=== PATIENT | female | born 2000 | race Caucasian/White ===

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

== ENCOUNTER → 2020-07-13 16:00 | Outpatient (CLI) | payer BC, SELFPAY ==
[2017-06-15 21:56] VITALS: BMI 20.2
[2020-07-13 17:52] LABS: Erythrocyte Sedimentation Rate 2 mm/hr (0-30)
[2020-07-13 18:15] LABS: Rheumatoid Factor < 10.0 IU/mL (<15)
[2020-07-15 15:55] LABS: ANTINUCLEAR ANTIBODIES DIRECT Negative (Negative)
[2020-07-20 12:08] LABS: Cytoplasmic Ab (C-ANCA) <1:20 titer (Neg:<1:20); QNTFERON TB Mitogen Value > 10.00 IU/mL (.); QNTFERON TB Nil Value 0.01 IU/mL (.); QNTFERON TB1+ Ag Value 0.06 IU/mL (.); QNTFERON TB2+ Ag Value 0.05 IU/mL (.)
[2020-07-20 17:09] LABS: HLA B27 Negative (.); Perinuclear Ab (P-ANCA) <1:20 titer (Neg:<1:20); QNTIFERON TB Positive Criteria Negative (Negative)
== END ==
DX: H20.9 Unspecified iridocyclitis (principal)
CPT/HCPCS: 36415; 81374; 85652; 86038; 86256; 86431; 86480

== ENCOUNTER 2020-08-08 23:27 | Emergency (ER) | payer BC, SELFPAY ==
[2020-08-08 23:27] VITALS: BP 151/88; PULSE 97; RESP 16; TEMP 35.5; O2SAT 96; BMI 21.2
--- NOTE | 2020-08-08 23:56 | EKG12_ITS ---
Test Reason : HEADACHE Blood Pressure : / mmHG Vent. Rate : 084 BPM Atrial Rate : 084 BPM P-R Int : 138 ms QRS Dur : 078 ms QT Int : 340 ms P-R-T Axes : 054 091 015 degrees QTc Int : 401 ms Normal sinus rhythm Rightward axis Nonspecific ST abnormality Abnormal ECG Confirmed by ARTHUR EATON, DORA ([id number]), television news video editor RIAZ BARILLAS ([id number]) on 08/09/2020 10:52:12 AM Referred By: MIRA Confirmed By:DORA GIBSON MD
--- NOTE | 2020-08-08 23:59 | ED.DCSUM_ITS ---
History of Present Illness Chief Complaint: Headache Informant: Patient Onset: Yesterday Context: Gradual Onset Timing: Waxes and wanes Current Severity: Mild Maximum Severity: Moderate Narrative: Patient present secondary to headache and palpitations. Approximately 6 weeks ago but she began noticing floaters in her left eye. She was seen by an ceo & board director approximate 1 month ago who diagnosed her with optic neuritis. She had an MRI of her orbits and is scheduled for an MRI of her brain this week. Patient states they believe she has an autoimmune disorder. She was seen in urgent care earlier today for thrush in her mouth. She is also on antibiotics for BV. Patient states last evening she began having palpitations and generalized headache which she described as a brain freeze. Symptoms improved after approximately 30 minutes but never completely subsided. She is continue to have waxing and waning headaches today. She does have light sensitivity. No nausea or vomiting. No recent head trauma. - Past Medical History (1) Anxiety Status: Chronic Past Medical History - Allergies and Home Meds Allergies/Adverse Reactions: Allergies naproxen Allergy (Verified 08/08/20 23:32) Itching cefdinir [From Omnicef] Adverse Reaction (Verified 08/08/20 23:32) Itching nitrofurantoin [From Macrobid] Adverse Reaction (Verified 08/08/20 23:32) Itching oseltamivir [From Tamiflu] Adverse Reaction (Verified 08/08/20 23:32) Itching pineapple Adverse Reaction (Verified 08/08/20 23:32) Anaphylaxis Sulfa (Sulfonamide Antibiotics) Adverse Reaction (Verified 08/08/20 23:32) Itching Primary Care Physician: Care Physician,No Primary [Primary Care Provider] - Prior records reviewed: Yes Lives: With Family Smoking Status: Never smoker Review of Systems General: Denies: Chills, Fever Eyes: Reports: - - Floaters and decreased color sensation left eye ENT: Denies: Bilateral ear pain, Sore throat Cardiovascular: Reports: Palpitations. Denies: Chest pain Respiratory: Denies: Dyspnea, Cough Gastrointestinal: Denies: Abdominal pain, Nausea, Vomiting, Diarrhea Genitourinary: Denies: Dysuria Musculoskeletal: Denies: Swelling, Extremity Pain Skin: Denies: Rash Neurological: Reports: Headache. Denies: Weakness, Parasthesia Hematologic: Denies: Easy bruising, Easy bleeding Allergy: Denies: Uticaria Physical Exam Vital Signs/Narrative: Vital Signs Temp Pulse Resp BP Pulse Ox 08/08/20 23:27 96 F L 97 16 151/88 H 96 Inital Vital Signs reviewed: Yes General: Well nourished, Well developed Head: Normocephalic ENT: Moist mucous membranes Neck: Supple Cardiovascular: Regular rate, Regular rhythm Respiratory: No distress, CTA bilaterally Abdomen: Soft, Nontender Back: Nontender Extremities: Nontender Skin: Normal color, No rash Neurological: Alert, Oriented x3, Normal Strength, Normal Sensation Psychological: Normal affect Diagnostic/Tx/Re-eval Chest X-Ray - ED: 1 View, Read by ED Physician, Normal, Heart, Lungs, Mediastinum Impressions Chest X-Ray 08/09/20 00:00 IMPRESSION: Normal x-ray examination of the chest. Electronically Signed: Omar Whitehead DO at 0:46 EST Tel , Service support , Brain CT 08/09/20 23:57 IMPRESSION: Normal unenhanced CT scan of the brain. Electronically Signed: Omar Whitehead DO at 0:48 EST Tel , Service support , 08/09/20 00:00 Chest 1 View (Portable) [RAD] Stat 08/09/20 23:57 Brain/Head without Contrast [CT] Stat Laboratory Results 08/09/20 08/09/20 00:10 00:10 WBC 8.1 RBC 5.01 Hgb 13.7 Hct 43.4 MCV 86.6 MCH 27.3 MCHC 31.6 L RDW Std Deviation 40.0 RDW Coeff of Nika 12.5 Plt Count 350 MPV 10.2 Immature Gran % (Auto) 0.200 Neut % (Auto) 56.5 Lymph % (Auto) 36.6 [place] % (Auto) 5.4 Eos % (Auto) 0.7 Baso % (Auto) 0.6 Absolute Neuts (auto) 4.6 Absolute Lymphs (auto) 2.96 Nucleated RBC % 0 Sodium 141 Potassium 3.6 Chloride 107 Carbon Dioxide 23.0 Anion Gap 11 BUN 11 Creatinine 0.78 Estim Creat Clear Calc 90.99 Est GFR (MDRD) Af Amer 120 Est GFR (MDRD) Non-Af 99 BUN/Creatinine Ratio 14.0 Glucose 85 Calcium 9.7 TSH 2.06 - EKG Initial EKG Interpretation: Sinus Rhythm - Sinus 84 with no acute ischemia. - Medical Decision Making Patient was given Toradol, Reglan, Benadryl, and IV fluids. Chest x-ray and head CT are unremarkable. Blood work including electrolytes and TSH are normal. On repeat evaluation patient states her headache is significantly improved. She has not had palpitations while here in the emergency room and no arrhythmias have been noted on media monitor. Patient will follow up with her doctors later this week for further testing as already planned. ED Disposition - Plan for ED Patient: Disposition: Home or Assisted Living Diagnosis: Cephalgia, Palpitations Instructions: ED Palpitations, ED Headache Unspecified Additional Instructions: Follow-up with your specialists as planned.
--- NOTE | 2020-08-09 | RAD_ITS ---
STUDY: X-RAY CHEST REASON FOR EXAM: Female, 20 years old. palpitations TECHNIQUE: Single AP portable view of the chest. COMPARISON: None. FINDINGS: The lungs are clear and expanded. There is no demonstrated pleural abnormality. Normal size heart. Normal mediastinum and prashanth. Normal visualized pulmonary arteries. Normal visualized aortic arch and descending thoracic aorta. Normal visualized thoracic spine. Normal visualized ribs, clavicles, and shoulders. There is no demonstrated abnormality of the visualized soft tissue structures of the upper abdomen. RAD/Chest 1 View (Portable) IMPRESSION: Normal x-ray examination of the chest. Electronically Signed: Omar Whitehead DO at 0:46 EST Tel , Service support ,
[2020-08-09] MEDS: 0.9% Normal Saline 1,000 ML 1000 ML IV (00:07)
[2020-08-09] MEDS: DiphenhydrAMINE 50 MG/ML Syringe 25 MG IV (00:08)
[2020-08-09] MEDS: Metoclopramide 10 MG/2 ML Vial 5 MG IV (00:08)
[2020-08-09] MEDS: Ketorolac 15 MG/ML Vial IV (00:08)
[2020-08-09 00:15] LABS: Absolute Lymphocyte Count 2.96 X10^3/uL (0.83-4.51); Absolute Neutrophil Count 4.6 X10^3/uL (2.0-7.7); Basophil# 0.05 X10^3/uL; Basophil% 0.6 % (0-1); Eosinophil# 0.06 X10^3/uL; Eosinophils% 0.7 % (0-5); Hematocrit 43.4 % (37-47); Hemoglobin 13.7 g/dL (12.0-15.0); Lymphocyte # 2.96 X10^3/ul (4.0); Lymphocyte % 36.6 % (19-41); Mean Corp Hgb Conc 31.6 g/dL (32-36); Mean Corpuscular Hgb 27.3 pg (27.0-32.0); Mean Corpuscular Volume 86.6 fL (81-99); Mean Platelet Vol. 10.2 fl (6.2-12.0); Monocyte# 0.44 X10^3/uL; Monocyte% 5.4 % (0-10); NRBC Flagged by Analyzer 0 % (0-5); Neutrophil # 4.55 X10^3/uL (2.7-7.7); Neutrophil % 56.5 % (47-70); Platelet Count 350 K/mm3 (150-450); RBC Distribution Width CV 12.5 % (11.6-14.6); Red Blood Count 5.01 M/mm3 (4.2-5.4); White Blood Count 8.1 K/mm3 (4.4-11.0)
[2020-08-09 00:40] LABS: Anion Gap 11 (5-15); BUN 11 mg/dL (7-18); Calcium,Total 9.7 mg/dL (8.5-10.1); Chloride 107 mmol/L (98-107); Creatinine, Serum 0.78 mg/dL (0.55-1.02); EST Glomerular Filtration Rate 99 mL/min (>60); Est Glom Filt Rate - Afr Amer 120 mL/min (>60); Estimated Creatinine Clearance 90.99 ml/min; Glucose 85 mg/dL (74-106); Potassium 3.6 mmol/L (3.5-5.1); Sodium Level 141 mmol/L (136-145); Thyroid Stim Hormone (TSH) 2.06 uIU/mL (0.358-3.74)
[2020-08-09 01:18] VITALS: PULSE 90; RESP 17; O2SAT 98
--- NOTE | 2020-08-09 23:57 | CT_ITS ---
STUDY: CT BRAIN WITHOUT CONTRAST REASON FOR EXAM: Female, 20 years old. headache RADIATION DOSAGE (If Supplied By Facility): CTDIvol = ( 44.99 ) mGy, DLP = ( 762.36 ) mGycm TECHNIQUE: Transaxial CT imaging of the brain was performed without administration of intravenous contrast material. Individualized dose optimization techniques were used for this CT. COMPARISON: No relevant priors. FINDINGS: Normal soft tissue structures. Normal calvarium. Normal size ventricles and extra-axial spaces for the patient''s age. Normal white matter tracts of the cerebral hemispheres. Normal basal ganglia and thalami. Normal brainstem. Normal cerebellum. There is no intracranial hemorrhage. There are no findings of an acute ischemic infarction. Normal visualized paranasal sinuses. CT/Brain/Head without Contrast IMPRESSION: Normal unenhanced CT scan of the brain. Electronically Signed: Omar Whitehead DO at 0:48 EST Tel , Service support ,
== END 2020-08-09 01:21 | disposition home or self-care (01) ==
PROVIDERS: Emergency Provider Emergency Medicine
DX: R51.9 Headache, unspecified (principal); R00.2 Palpitations
CPT/HCPCS: 70450; 71045; 80048; 84443; 85025; 93005; 96361; 96374; 96375; 99283; J7030; A4216

== ENCOUNTER 2021-11-15 18:30 | Emergency (ER) | payer BC, SELFPAY ==
[2021-11-15 18:32] VITALS: BP 134/73; PULSE 103; RESP 16; TEMP 36.8; O2SAT 100; BMI 22.0
--- NOTE | 2021-11-15 18:49 | EKG12_ITS ---
Test Reason : DIZZINESS Blood Pressure : / mmHG Vent. Rate : 090 BPM Atrial Rate : 090 BPM P-R Int : 138 ms QRS Dur : 084 ms QT Int : 352 ms P-R-T Axes : 066 088 021 degrees QTc Int : 430 ms Normal sinus rhythm Nonspecific ST abnormality Abnormal ECG Confirmed by NATALEE EATON, RITIKA ([id number]), research editor RIAZ BARILLAS ([id number]) on 11/20/2021 7:37:30 AM Referred By: MIGUELANGEL Confirmed By:RITIKA ALBRIGHT MD
--- NOTE | 2021-11-15 18:50 | EX.ED.DYSGE1 ---
HPI History of Present Illness Chief Complaint: Dizziness Narrative Narrative: Patient presents with near syncope symptoms that she has had all day. She has past medical history of MS and takes gabapentin for nerve pain. She was recently placed on Cymbalta for her nerve pain instead of upping the nighttime dose of her gabapentin, and took her first dose this morning. She states she was at work and she did not feel well. Her coworkers told her that her cheeks were flushed and red, and that her pupils were dilated. She stated to them that she did not feel well because she did feel flushed and then will get chills. She felt lightheaded as if she was going to pass out. She denies any chest pain or shortness of breath. No other symptoms. She sat down and still did not feel well and became more chilled versus flushed. She describes more near syncopal symptoms. No fever. No problems with dysuria. She does not have menstrual periods because she is on Depo-Provera. [facility] Medical History (Updated 11/15/21 @ 20:28 by Db Starr MD) Celiac disease Neuropathy Optic neuritis Home Medications medroxyprogesterone 1 applic IM QMONTH 06/15/17 [History Last Taken Unknown] Allergy/AdvReac Type Severity Reaction Status Date / Time naproxen Allergy Itching Verified 11/15/21 18:31 cefdinir [From Omnicef] AdvReac Itching Verified 11/15/21 18:31 nitrofurantoin AdvReac Itching Verified 11/15/21 18:31 [From Macrobid] oseltamivir [From Tamiflu] AdvReac Itching Verified 11/15/21 18:31 pineapple AdvReac Anaphylaxis Verified 11/15/21 18:31 Sulfa (Sulfonamide AdvReac Itching Verified 11/15/21 18:31 Antibiotics) Social History Smoking Status: Never smoker ROS ROS ED ROS Narrative Constitutional: No fever, feels flushed, positive alternating chills. HEENT: No sore throat. No neck pain. No loss of vision. No rhinorrhea. Cardiovascular: No chest pain. No palpitations. No pedal edema. Respiratory: No cough, no shortness of breath. Abdominal: No abdominal pain. Mild nausea. No vomiting. Genitourinary: No dysuria. No hematuria. Musculoskeletal: No myalgias. No arthralgias. Neurologic: No headaches. No dizziness. Positive near syncope and lightheadedness. Skin: No rash. No change in color, except for reported flushed cheeks earlier today. Psychiatric: No depression. No anxiety. EXAM Physical Exam Narrative Exam Narrative: Afebrile. Vital signs noted. HEENT: Normocephalic. Atraumatic. PERRL, EOMI. Neck soft and supple. No point tenderness or step off. Cardiovascular: Regular rate and rhythm with intermittent tachycardia at 103. No murmurs, rubs, or gallops appreciated. Respiratory: No tachypnea. Lungs clear to auscultation bilaterally. Gastrointestinal: Abdomen soft, nontender, with normoactive bowel sounds. No rebound or guarding. Neurological: Awake. Alert. Nonfocal, nonlateralizing. Skin: No rash. Normal color. No pallor. Musculoskeletal: No pedal edema. Full range of motion extremities. Const Vital Signs: 11/15/21 18:32 11/15/21 19:05 Temperature 98.2 F Temperature Source Temporal Pulse Rate 103 H Pulse Rate [Lying] 86 Pulse Rate [Sitting (for 1 minute prior to obtaining)] 83 Pulse Rate [Standing (for 1 minute prior to obtaining)] 90 Respiratory Rate 16 Blood Pressure 134/73 H Blood Pressure [Lying] 127/75 H Blood Pressure [Sitting (for 1 minute prior to obtaining)] 125/74 H Blood Pressure [Standing (for 1 minute prior to obtaining)] 133/78 H Blood Pressure Mean 93 Blood Pressure Mean [Lying] 92 Blood Pressure Mean [Sitting (for 1 minute prior to obtaining)] 91 Blood Pressure Mean [Standing (for 1 minute prior to obtaining)] 96 Pulse Ox 100 Oxygen Delivery Method Room Air MDM MDM MDM Narrative Medical decision making narrative: Patient and her mother state that [facility] were [facility]. They were sent for laboratory work. I do feel that she most likely has vasovagal near syncope/medication side effect. She will be bolused normal saline 1 L intravenously. I will obtain an EKG and basic laboratory work including urinalysis. However, given that she does not have menses secondary to her Depo-Provera, I do not feel that beta-hCG is indicated. EKG demonstrates normal sinus rhythm at 90 bpm without ectopy or acute ST changes. Orthostatics are negative. CBC is grossly normal with a normal white count of 6.3, hemoglobin normal at 12.7, hematocrit 39.7. Platelet count normal at 305. Chloride slightly elevated at 111 but normal sodium and normal potassium. Anion gap normal at 5. BUN and creatinine are normal at 10 and 0.76 respectively. No signs of dehydration. Urinalysis is negative for ketones or infection. After IV fluids, she has markedly improved according to her mother and she feels improved as well. She would like to be discharged. I do feel that she has more of a medication side effect than a true allergy. She states she will not take the Cymbalta and will follow-up with her primary care physician. I feel she can be discharged safely home with follow-up. Return instructions were reviewed. Disposition is discharged home in stable condition. Lab Data Attestation: I reviewed the patient's lab results. Labs: Laboratory Results - last 24 hr 11/15/21 11/15/21 11/15/21 19:00 19:00 19:22 WBC 6.3 RBC 4.62 Hgb 12.7 Hct 39.7 MCV 85.9 MCH 27.5 MCHC 32.0 RDW Std Deviation 42.4 RDW Coeff of Nika 13.6 Plt Count 305 MPV 10.6 Immature Gran % (Auto) 0.200 Neut % (Auto) 59.6 Lymph % (Auto) 29.7 [place] % (Auto) 8.6 Eos % (Auto) 1.1 Baso % (Auto) 0.8 Absolute Neuts (auto) 3.7 Absolute Lymphs (auto) 1.86 Nucleated RBC % 0 Sodium 141 Potassium 4.5 Chloride 111 H Carbon Dioxide 25.0 Anion Gap 5 BUN 10 Creatinine 0.76 Estim Creat Clear Calc 92.61 Est GFR (MDRD) Af Amer 123 Est GFR (MDRD) Non-Af 102 BUN/Creatinine Ratio 13.2 Glucose 107 H Calcium 9.2 Total Bilirubin 0.40 AST 9 L ALT 14 Alkaline Phosphatase 72 Total Protein 7.2 Albumin 4.2 Globulin 3.0 Albumin/Globulin Ratio 1.4 Urine Color Straw Urine Clarity Clear Urine pH 6.0 Ur Specific [place] 1.010 Urine Protein Negative Urine Glucose (UA) Normal Urine Ketones Negative Urine Occult Blood Negative Urine Nitrite Negative Urine Bilirubin Negative Urine Urobilinogen Normal Ur Leukocyte Esterase Negative Urine RBC 0 SEEN Urine WBC 0 SEEN Ur Squamous Epith Cells 0-5 SEEN Urine Bacteria RARE Urine Mucus 0 SEEN Discharge Plan Triage Chief Complaint: Dizziness ED Provider: Db Starr Dx/Rx/DC Orders Clinical Impression: Medication intolerance, Vasovagal near-syncope Instructions: ED Near-Fainting, Uncertain Cause Prescriptions: No Action medroxyprogesterone 150 MG/ML syringe 1 applic IM QMONTH RF: 0 Referrals: JULIANNA HOUSER [Other] Activity Restrictions/Additional Instructions: Avoid taking Cymbalta because of your intolerance to it. Follow-up with your primary care physician as soon as possible. Call tomorrow. Disposition Disposition: Home, Self Care
[2021-11-15 19:05] VITALS: BP 125/74; BP 127/75; BP 133/78; PULSE 83; PULSE 86; PULSE 90
[2021-11-15 19:12] LABS: Absolute Lymphocyte Count 1.86 X10^3/uL (0.83-4.51); Absolute Neutrophil Count 3.7 X10^3/uL (2.0-7.7); Basophil# 0.05 X10^3/uL; Basophil% 0.8 % (0-1); Eosinophil# 0.07 X10^3/uL; Eosinophils% 1.1 % (0-5); Hematocrit 39.7 % (37-47); Hemoglobin 12.7 g/dL (12.0-15.0); Lymphocyte # 1.86 X10^3/ul (0.83-4.51); Lymphocyte % 29.7 % (19-41); Mean Corpuscular Hgb 27.5 pg (27.0-32.0); Mean Corpuscular Volume 85.9 fL (81-99); Mean Platelet Vol. 10.6 fl (6.2-12.0); Monocyte# 0.54 X10^3/uL; Monocyte% 8.6 % (0-10); NRBC Flagged by Analyzer 0 % (0-5); Neutrophil # 3.74 X10^3/uL (2.7-7.7); Neutrophil % 59.6 % (47-70); Platelet Count 305 K/mm3 (150-450); RBC Distribution Width CV 13.6 % (11.6-14.6); RBC Distribution Width SD 42.4 fl (35.1-43.9); Red Blood Count 4.62 M/mm3 (4.2-5.4); White Blood Count 6.3 K/mm3 (4.4-11.0)
[2021-11-15] MEDS: 0.9% Normal Saline 1,000 ML 1000 ML IV (19:28)
[2021-11-15 19:41] LABS: ALB/GLOB Ratio 1.4 RATIO (0.9-2.4); AST(SGOT) 9 U/L (15-37); Alanine Aminotransfer ALT/SGPT 14 U/L (13-56); Albumin, Serum 4.2 g/dL (3.2-5.0); Alkaline Phosphatase 72 U/L (45-117); Anion Gap 5 (5-15); BUN 10 mg/dL (7-18); BUN/Creat Ratio 13.2 RATIO (10-20); Calcium,Total 9.2 mg/dL (8.5-10.1); Chloride 111 mmol/L (98-107); Creatinine, Serum 0.76 mg/dL (0.55-1.02); EST Glomerular Filtration Rate 102 mL/min (>60); Est Glom Filt Rate - Afr Amer 123 mL/min (>60); Estimated Creatinine Clearance 92.61 ml/min; Glucose 107 mg/dL (74-106); Potassium 4.5 mmol/L (3.5-5.1); Protein, Total 7.2 g/dL (6.4-8.2); Sodium Level 141 mmol/L (136-145)
[2021-11-15 19:53] LABS: Mucous, Urine 0 SEEN /hpf (<or=2+); Red Blood Cells-Urine 0 SEEN /hpf (0-5); White Blood Cells 0 SEEN /hpf (0-5)
[2021-11-15 20:02] LABS: Color, Urine Straw (Yellow); Glucose, Dipstick Normal (Normal); Ketone-Dipstick Negative (Negative); Leukocyte Esterase-Dipstick Negative /ul (Negative); Nitrite-Dipstick Negative (Negative); Occult Blood-Urine Negative /ul (Negative); Protein-Dipstick Negative (Negative); Urine Bilirubin Dipstick Negative (Negative); Urine Clarity Clear (Clear); Urine Urobilinogen Normal (Normal)
[2021-11-15 20:11] LABS: Bacteria RARE /hpf (None Seen); Squamous Epithelial Cells - UA 0-5 SEEN /hpf (5-10)
[2021-11-15 20:38] VITALS: BP 115/86; PULSE 81; RESP 15; O2SAT 99
== END 2021-11-15 20:40 | disposition home or self-care (01) ==
PROVIDERS: Emergency Provider Emergency Medicine; Visit Provider Emergency Medicine
DX: R42 Dizziness and giddiness (principal); G35 Multiple sclerosis; R55 Syncope and collapse; T43.215A Adverse effect of selective serotonin and norepinephrine reuptake inhibitors, initial encounter
CPT/HCPCS: 80053; 81001; 85025; 93005; 96360; 99284; J7030; A4216